=== PATIENT | male | born 1950 ===

== ENCOUNTER 2019-12-05 11:01 | Emergency (ER) | payer OTHER ==
[2019-12-05 11:12] VITALS: BP 171/90; PULSE 96
[2019-12-05] MEDS ORDERED: Sodium Chloride 0.9% 10 ML Syringe FLUSH PRN (11:19)
[2019-12-05] MEDS ORDERED: Aspirin 81 MG Tab.Chew PO ONE (11:27)
--- NOTE | 2019-12-05 11:35 | EDM.PDOC ---
ED HPI GENERAL MEDICAL PROBLEM - General Chief Complaint: Chest Pain Stated Complaint: ARM PAIN UPPER BACK AND CHEST PAIN Time Seen by Provider: 12/05/19 11:11 Source of Information: Reports: Patient History Limitations: Reports: No Limitations - History of Present Illness INITIAL COMMENTS - FREE TEXT/NARRATIVE: Patient is a 69-year-old male presenting to the emergency department with complaints of right arm pain and upper back pain that wraps around to his chest. He states symptoms began last evening. He describes it as a pressure with occasional shooting pains down his right arm. He denies any recent strenuous activity or repetitive actions with his upper extremity. Last night he took Tylenol for it with little relief. States he did not sleep too well last evening. He denies any significant cardiac history. States he has been going to PT to strengthen his lower back and leg muscles, however they did not have him doing any upper body exercises. Denies any shortness of breath or diaphoresis. He has had no cough, fever, chills, nausea, or vomiting. Middle Back Pain Score (Numeric/FACES): 4 - Related Data Allergies Allergy/AdvReac Type Severity Reaction Status Date / Time No Known Allergies Allergy Verified 10/26/15 20:44 Home Meds: Home Meds Acetaminophen [Tylenol Extra Strength] 1,000 mg PO Q6HR PRN 10/26/15 [History] Empagliflozin/Metformin HCl [Synjardy 12.5-1,000 mg Tablet] 1 tab PO DAILY 12/05/19 [History] Losartan/Hydrochlorothiazide [Losartan-HCTZ 50-12.5 MG] 1 tab PO DAILY 12/05/19 [History] Rosuvastatin Calcium 10 mg PO DAILY 12/05/19 [History] Past Medical History HEENT History: Reports: Impaired Vision Other HEENT History: Wears glasses Cardiovascular History: Reports: High Cholesterol, Hypertension Musculoskeletal History: Reports: Back Pain, Chronic Endocrine/Metabolic History: Reports: Diabetes, Type II Oncologic (Cancer) History: Reports: Bladder - Past Surgical History GI Surgical History: Reports: Appendectomy Other Male Surgeries/Procedures: 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 Denies: Fever, Chills, Weakness HEENT: Reports: No Symptoms Respiratory: Reports: No Symptoms. Denies: Shortness of Breath, Cough Cardiovascular: Reports: Chest Pain. Denies: Dyspnea on Exertion, Lightheadedness, Syncope Endocrine: Reports: No Symptoms GI/Abdominal: Reports: No Symptoms. Denies: Abdominal Pain, Diarrhea, Nausea, Vomiting : Reports: No Symptoms Musculoskeletal: Reports: Back Pain (Bilateral upper back), Other (Right shoulder and arm) Skin: Reports: No Symptoms Neurological: Reports: No Symptoms Psychiatric: Reports: No Symptoms Hematologic/Lymphatic: Reports: No Symptoms Immunologic: Reports: No Symptoms ED EXAM, GENERAL - Physical Exam Exam: See Below General Appearance: Alert, WD/WN, No Apparent Distress Respiratory/Chest: No Respiratory Distress, Lungs Clear, Normal Breath Sounds, No Accessory Muscle Use, Chest Non-Tender Cardiovascular: Normal Peripheral Pulses, Regular Rate, Rhythm, No Edema, No Gallop, No JVD, No Murmur, No Rub Back Exam: Normal Inspection, Full Range of Motion, Other (Mild tenderness to palpation of the left upper back.) Extremities: Normal Inspection, Normal Range of Motion, Non-Tender, Normal Capillary Refill, No Pedal Edema Neurological: Alert, Oriented, CN II-XII Intact, Normal Cognition, Normal Gait, Normal Reflexes, No Motor/Sensory Deficits Psychiatric: Normal Affect, Normal Mood Skin Exam: Warm, Dry, Intact, Normal Color, No Rash EKG INTERPRETATION EKG Date: 12/05/19 Time: 11:08 Rhythm: NSR Rate (Beats/Min): 92 [place]: Normal P-Wave: Present QRS: Normal ST-T: Depressed (minimal in lateral leads) QT: Normal Course - Vital Signs Last Recorded V/S: Last Vital Signs Temp 98.4 F 12/05/19 11:09 Pulse 96 12/05/19 11:09 Resp 18 12/05/19 11:09 BP 171/90 H 12/05/19 11:09 Pulse Ox 100 12/05/19 11:09 - Orders/Labs/Meds Orders: Active Orders 24 hr Category Date Time Status Chest 2V [CR] Stat Exams 12/05/19 11:19 Taken Peripheral IV Insertion Adult [OM.PC] Stat Oth 12/05/19 11:19 Ordered EKG 12 Lead [EK] Stat Ther 12/05/19 11:08 Ordered Labs: Laboratory Tests 12/05/19 12/05/19 Range/Units 11:33 11:33 WBC 4.41 (4.23-9.07) K/mm3 RBC 5.30 (4.63-6.08) M/mm3 Hgb 14.8 (13.7-17.5) gm/dl Hct 45.0 (40.1-51.0) % MCV 84.9 (79.0-92.2) fl MCH 27.9 (25.7-32.2) pg MCHC 32.9 (32.2-35.5) g/dl RDW Std Deviation 47.7 H (35.1-43.9) fL Plt Count 194 (163-337) K/mm3 MPV 9.7 (9.4-12.3) fl Neut % (Auto) 55.8 (34.0-67.9) % Lymph % (Auto) 18.1 L (21.8-53.1) % [place] % (Auto) 24.7 H (5.3-12.2) % Eos % (Auto) 0.5 L (0.8-7.0) Baso % (Auto) 0.7 (0.1-1.2) % Neut # (Auto) 2.46 (1.78-5.38) K/mm3 Lymph # (Auto) 0.80 L (1.32-3.57) K/mm3 [place] # (Auto) 1.09 H (0.30-0.82) K/mm3 Eos # (Auto) 0.02 L (0.04-0.54) K/mm3 Baso # (Auto) 0.03 (0.01-0.08) K/mm3 Manual Slide Review Abnormal smear Sodium 140 (136-145) mEq/L Potassium 3.6 (3.5-5.1) mEq/L Chloride 101 (98-107) mEq/L Carbon Dioxide 28 (21-32) mEq/L Anion Gap 14.6 (5-15) BUN 10 (7-18) mg/dL Creatinine 1.2 (0.7-1.3) mg/dL Est Cr Clr Drug Dosing 52.79 mL/min Estimated GFR (MDRD) 60 (>60) mL/min BUN/Creatinine Ratio 8.3 L (14-18) Glucose 146 H (83-115) mg/dL Calcium 9.0 (8.5-10.1) mg/dL Total Bilirubin 0.4 (0.2-1.0) mg/dL AST 17 (15-37) U/L ALT 25 (16-63) U/L Alkaline Phosphatase 57 (46-116) U/L Troponin I < 0.017 (0.00-0.056) ng/mL C-Reactive Protein 0.8 (<1.0) mg/dL Total Protein 7.1 (6.4-8.2) g/dl Albumin 3.9 (3.4-5.0) g/dl Globulin 3.2 gm/dL Albumin/Globulin Ratio 1.2 (1-2) Meds: Medications Discontinued Medications Generic Name Dose Route Start Last Admin Trade Name Freq PRN Reason Stop Dose Admin Aspirin 324 mg 12/05/19 11:27 12/05/19 11:43 Aspirin PO 12/05/19 11:28 324 mg ONETIME ONE Administration Sodium Chloride 10 ml 12/05/19 11:19 Saline Flush FLUSH ASDIRECTED PRN Keep Vein Open - Re-Assessments/Exams Free Text/Narrative Re-Assessment/Exam: 12/05/19 12:46 Patient is a 69-year-old male presenting to the emergency department with complaints of right arm and shoulder pain and upper back pain that radiates into his chest. Hematology was grossly unremarkable. Troponin was negative. EKG was found to be normal. Chest x-ray was normal. Discussed with patient that he is likely experiencing musculoskeletal pain. Recommend that he continue to use Tylenol and ibuprofen as needed for discomfort. Discussed that heat to his upper back may also improve his symptoms. Return precautions discussed. Discharge instructions as documented. Departure - Departure Time of Disposition: 12:47 Disposition: Home, Self-Care 01 Condition: Good Clinical Impression: Atypical chest pain Back pain Qualifiers: Back pain location: thoracic back pain Chronicity: acute Back pain laterality: bilateral Qualified Code(s): M54.6 - Pain in thoracic spine Instructions: Nonspecific Chest Pain, Adult, [id number] Referrals: Bob Cobian MD [Primary Care Provider] - Forms: ED Department Discharge Additional Instructions: You were seen in the emergency department for right arm and shoulder pain, as well as upper back pain radiating into your chest. Your work-up included blood work, EKG of your heart, and a chest x-ray. Your work-up was found to be normal. You are not having a heart attack. Likely cause of your pain is musculoskeletal. Recommend that you continue to use Tylenol and ibuprofen as needed for discomfort. Apply heat to your upper back may also improve the symptoms. Return to the emergency department for any new or worsening symptoms of concern. Recommend follow-up with your primary care provider this week to discuss your symptoms and possibility of repeat stress test. Sepsis Event Note (ED) - Evaluation Sepsis Screening Result: No Definite Risk - Focused Exam Vital Signs: Vital Signs Temp Pulse Resp BP Pulse Ox 12/05/19 11:09 98.4 F 96 18 171/90 H 100 - My Orders Last 24 Hours: My Active Orders 12/05/19 11:08 EKG 12 Lead [EK] Stat 12/05/19 11:19 Chest 2V [CR] Stat Peripheral IV Insertion Adult [OM.PC] Stat - Assessment/Plan Last 24 Hours: My Active Orders 12/05/19 11:08 EKG 12 Lead [EK] Stat 12/05/19 11:19 Chest 2V [CR] Stat Peripheral IV Insertion Adult [OM.PC] Stat
--- NOTE | 2019-12-06 11:22 | CR ---
Chest: 2 views of the chest were obtained. Comparison: No prior chest imaging. Heart size and mediastinum are normal. Lungs are clear with no acute parenchymal change. Scattered degenerative change is noted within the spine. Impression: 1. Nothing acute is seen on 2 view chest x-ray. Diagnostic code #2 This report was dictated in MDT
== END 2019-12-05 12:56 | disposition home or self-care (01) ==
LOC: JD.ED 11:01
DX: R07.89 Other chest pain (principal); M54.6 Pain in thoracic spine; M25.511 Pain in right shoulder; I10 Essential (primary) hypertension; E78.00 Pure hypercholesterolemia, unspecified; E11.9 Type 2 diabetes mellitus without complications; Z79.899 Other long term (current) drug therapy
CPT/HCPCS: 36415; 71046; 80053; 84484; 85025; 86140; 93005; 99285; A9270; 93010; 99283

== ENCOUNTER → 2021-05-10 | Day surgery (SDC) | payer MEDICARE, OTHER ==
[~2021-05-10] MED LIST: Lactated Ringers 1,000 ML IV SCH; Lidocaine 1% 6 ML ONE; Lidocaine 1% with EPINEPHrine 1:100,000 20 ML MDV ONE; Lidocaine 1%/Sod Bicarbonate in NS 8.4% 1 ML Syringe IDERM PRN; Propofol 200 MG/20 ML SDV ONE; Sodium Chloride 0.9% 10 ML Syringe FLUSH PRN; Sodium Chloride 0.9% 10 ML Syringe FLUSH SCH; fentaNYL 100 MCG/2 ML SDV ONE
[2021-05-10 12:22] VITALS: BP 139/88; PULSE 78
== END | disposition home or self-care (01) ==
LOC: JD.SDS 09:43
PROVIDERS: ATTEND Surgery
DX: Z12.11 Encounter for screening for malignant neoplasm of colon (principal); D12.3 Benign neoplasm of transverse colon; N40.1 Benign prostatic hyperplasia with lower urinary tract symptoms; N39.46 Mixed incontinence; I10 Essential (primary) hypertension; E78.00 Pure hypercholesterolemia, unspecified; E03.9 Hypothyroidism, unspecified; E11.9 Type 2 diabetes mellitus without complications; E55.9 Vitamin D deficiency, unspecified; Z79.899 Other long term (current) drug therapy; Z90.49 Acquired absence of other specified parts of digestive tract; Z79.890 Hormone replacement therapy; Z98.890 Other specified postprocedural states; Z87.891 Personal history of nicotine dependence
CPT/HCPCS: 45380; 45381; J2704; J3010; J7120; 00812; 88305